=== PATIENT | female | born 1995 | race Two or more races ===

== ENCOUNTER 2019-10-11 08:11 | Emergency (ER) | payer OTHER ==
[2019-10-11 08:28] VITALS: BP 138/75; PULSE 119; TEMP 100.2; BMI 25.2
[2019-10-11] MEDS ORDERED: guaiFENesin/D-METHORPHAN HB 10 ML UNIT-DOSE CUPS PO ONE (09:16)
[2019-10-11] MEDS ORDERED: IBUPROFEN 600 MG TABLET (FP) PO ONE ×2 (09:16→09:22)
[2019-10-11] MEDS ORDERED: guaiFENesin 200 MG/10 ML 10 ML UNIT-DOSE CUPS ONE (09:21)
--- NOTE | 2019-10-11 09:22 | PDOC ---
History of Present Illness - General Chief Complaint: Cold Symptoms Stated Complaint: COLD SYMPTOMS Time Seen by Provider: 10/11/19 09:07 History Source: Patient Exam Limitations: No Limitations - History of Present Illness Initial Comments: 10/11/19 09:19 24 year old female with no significant medical or surgical history presents with reports of headaches, coughing and sneezing since Friday. Also reports bodyaches. Took theraflu with no relief of symptoms. STates sick contact with brother but no recent travel. Is this a multiple visit Asthma Patient?: No Timing/Duration: reports: other (4 days ) Severity: reports: moderate Possible Cause: Yes: no prior episodes Modifying Factors: improves with: coughing, rest, other (theraflu) Associated Symptoms: reports: cough, fever/chills, headache, nasal drainage Past History - Travel Traveled outside of the country in the last 30 days: No Close contact w/someone who was outside of country & ill: No - Past Medical History Allergies/Adverse Reactions: Allergies Allergy/AdvReac Type Severity Reaction Status Date / Time No Known Allergies Allergy Verified 07/10/12 15:30 Home Medications: Ambulatory Orders Diphenhydramine [Benadryl *Liquid*] 12.5 mg PO QID #120 ml 07/10/12 Hydrocortisone/Oatmeal/Aloe/E [Hydrocortisone 1% Cream] 28.4 gm TP BID #1 cream..g. 07/10/12 No Home Medications 0 dose .ROUTE UTDICT 07/10/12 Ibuprofen 600 mg PO TID #21 tablet 10/11/19 Oseltamivir Phosphate [Tamiflu -] 75 mg PO BID #10 capsule 10/11/19 - Psycho Social/Smoking Cessation Hx Smoking Status: No Smoking History: Never smoked Have you smoked in the past 12 months: No Number of Cigarettes Smoked Daily: 0 Information on smoking cessation initiated: No Hx Alcohol Use: No Drug/Substance Use Hx: No Respiratory Specific PMHX - Complaint Specific PMHX Hx Airway Support: No Hx Smoking Exposure: No Hx Pulmonary Embolus: No Hx TB (Tuberculosis): No Review of Systems - Review of Systems Able to Perform ROS?: Yes Is the patient limited Sami proficient: No Constitutional: Yes: Chills, Fever, Malaise Respiratory: Yes: Cough Cardiac (ROS): No: Chest Pain, Edema, Lightheadedness, Palpitations ABD/GI: Yes: Poor Appetite. No: Abdominal Distended, Nausea : No: Burning, Incontinence, Lesions Musculoskeletal: No: Back Pain, Joint Pain, Muscle Weakness Integumentary: No: Bruising Neurological: Yes: Headache. No: Numbness Psychiatric: No: Frequent Crying, Stressors Endocrine: No: Intolerance to Heat, Increased Hunger, Change in Weight *Physical Exam - Vital Signs Last Vital Signs Temp Pulse Resp BP Pulse Ox 100.2 F H 119 H 16 138/75 98 10/11/19 08:16 10/11/19 08:16 10/11/19 08:16 10/11/19 08:16 10/11/19 08:16 - Physical Exam General Appearance: Yes: Nourished, Appropriately Dressed HEENT: positive: Pharyngeal Erythema Neck: positive: Supple. 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 Also reports bodyaches. Took theraflu with no relief of symptoms. STates sick contact with brother but no recent travel. flu-like symptoms -antipyretic -cough syrup -flu swab 10/11/19 10:23 flu swab + influenza A Discharge - Discharge Information Problems reviewed: Yes Clinical Impression/Diagnosis: Influenza A Condition: Good Disposition: HOME - Admission No - Additional Discharge Information Prescriptions: Ibuprofen 600 mg PO TID #21 tablet Oseltamivir Phosphate [Tamiflu -] 75 mg PO BID #10 capsule - Follow up/Referral Referrals: Kareem Henderson MD [Primary Care Provider] - (call for follow up appointment ) - Patient Discharge Instructions Patient Printed Discharge Instructions: Influenza Additional Instructions: Drink plenty fluids Rest Avoid contacts with elderly, children and females Call primary physician for follow up appointment - Post Discharge Activity Work/Back to School Note: Back to Work
== END 2019-10-11 10:31 | disposition home or self-care (01) ==
LOC: JER 08:11 → JERFT 08:11
DX: J09.X2 Influenza due to identified novel influenza A virus with other respiratory manifestations (principal)
CPT/HCPCS: 87804; 99282-25